=== PATIENT | male | born 1960 | race Caucasian/White ===

== ENCOUNTER 2023-10-15 13:11 | Outpatient (CLI) | payer MEDICAID | END 2023-10-15 23:59 | disposition home or self-care (01) | LOC: RAD 13:11 | PROVIDERS: ATTEND Family Medicine | DX: M17.0 Bilateral primary osteoarthritis of knee (principal); K42.9 Umbilical hernia without obstruction or gangrene; K46.9 Unspecified abdominal hernia without obstruction or gangrene | CPT/HCPCS: 73564; 76705 ==

== ENCOUNTER 2024-10-23 09:09 | Outpatient (CLI) | payer MEDICAID ==
--- NOTE | 2024-10-23 11:20 | RADIOLOGY REPORT ---
EXAM: DI KNEE, COMP 4 VW MIN, DI KNEE, COMP 4 VW MIN CLINICAL INDICATION: OSTEOARTHRITIS IN BILATERAL KNEES TECHNIQUE: DI KNEE, COMP 4 VW MIN, DI KNEE, COMP 4 VW MIN Comparison: DI KNEE, COMP 4 VW MIN on DOS: 10/15/23, DI KNEE, COMP 4 VW MIN on DOS: 10/15/23 FINDINGS/IMPRESSION: There is no evidence of acute fracture or dislocation. Advanced bilateral knee osteoarthritis. The alignment is anatomical. There is no radiopaque foreign body.
== END 2024-10-23 23:59 | disposition home or self-care (01) ==
LOC: RAD 09:09
PROVIDERS: ATTEND Family Medicine
DX: M17.0 Bilateral primary osteoarthritis of knee (principal)
CPT/HCPCS: 73564